=== PATIENT | male | born 1945 | race Caucasian/White ===

== ENCOUNTER → 2019-08-16 | Outpatient (CLI) | payer MEDICARE | END | disposition home or self-care (01) | LOC: LABWHC1 10:35 | PROVIDERS: ATTEND Urology | DX: Z01.812 Encounter for preprocedural laboratory examination (principal); C61 Malignant neoplasm of prostate; R58 Hemorrhage, not elsewhere classified | CPT/HCPCS: 80048; 85025; 85610; 86850; 86900; 86901 ==

== ENCOUNTER 2019-08-23 05:55 | Day surgery (SDC) | payer MEDICARE ==
[2019-08-16 11:24] LABS: Basophils % (A) 1 %; Eosinophils # (A) 0.1 k/uL (0-0.7); Eosinophils % (A) 2 %; HCT 45.7 % (39.0-53.0); HGB 15.3 gm/dL (13.0-17.5); Lymphocytes # (A) 2.3 k/uL (1.0-4.8); Lymphocytes % (A) 29 %; MCH 31.3 pg (25.0-35.0); MCHC 33.5 g/dL (31.0-37.0); MCV 93.6 fL (80.0-100.0); Mean Platelet Volume 7.6; Monocytes # (A) 0.6 k/uL (0-1.0); Monocytes % (A) 7 %; Neutrophils # (A) 4.7 k/uL (1.3-7.7); Neutrophils % (A) 59 %; Platelet Count 195 k/uL (150-450); RBC 4.89 m/uL (4.30-5.90); RDW 13.1 % (11.5-15.5); WBC 7.8 k/uL (3.8-10.6)
[2019-08-16 11:33] LABS: Prothrombin Time 10.1 sec (9.0-12.0)
[2019-08-16 11:35] LABS: African American GFR (CKD) >90 (>60 ml/min/1.73 sqM); Anion Gap 10 mmol/L; Blood Urea Nitrogen 19 mg/dL (9-20); Calcium 9.2 mg/dL (8.4-10.2); Carbon Dioxide 27 mmol/L (22-30); Chloride 103 mmol/L (98-107); Glucose 124 mg/dL (74-99); Non-African American GFR(CKD) 85 (>60 ml/min/1.73 sqM); Potassium 3.6 mmol/L (3.5-5.1); Sodium 140 mmol/L (137-145)
[2019-08-16 15:23] VITALS: BMI 30.1
--- NOTE | 2019-08-22 12:58 | P.HPIHPCON ---
History of Present Illness H&P Date: 08/23/19 Chief Complaint: Prostate Cancer Mr Cagle is 73 yo male with hx of 3+4 [place] 7 prostate cancer, in the right mid and right apex of the gland. We discussed with him the options including surgery and radiation therapy. We discussed the risk and benefits with him of each approach. I discussed with surgery the risk of urinary incontinence or erectile dysfunction, I also discussed with him risk of injury to nearby organs including bowels and rectum and blood vessels. I also discussed the risk from anesthesia with him. Which includes but not limited to blood clots, heart attack, stroke and even . He understood all the risk and agreed to proceed with a robotic-assisted radical prostatectomy Consent for Procedure: I have explained the operation/procedure to the patient, including the risks, benefits, side effects, alternative therapies (including not receiving the proposed treatment or service), the likelihood of the patient achieving his/her goals, and potential recuperation problems for the procedure/sedation/analgesia, as well as any blood products, if indicated. I also explained to the patient the risks, benefits and side effects of the alternatives, as well as the risks related to not receiving the proposed procedure, care, treatment, or services. Past Medical History Past Medical History: Cancer, Hyperlipidemia, Hypertension, Prostate Disorder Additional Past Medical History / Comment(s): prostate cancer, varicose veins, History of Any Multi-Drug Resistant Organisms: None Reported Past Surgical History: Orthopedic Surgery Additional Past Surgical History / Comment(s): chris hand surgery for dupuytrens contracture, left heel ORIF(plate and screws) Past Anesthesia/Blood Transfusion Reactions: Motion Sickness Smoking Status: Never smoker - Past Family History Mother Family Medical History: No Reported History Medications and Allergies Home Medications Medication Instructions Recorded Confirmed Type Atorvastatin [Lipitor] 20 mg PO HS 08/16/19 08/16/19 History Hydrochlorothiazide 25 mg PO QAM 08/16/19 08/16/19 History Losartan Potassium 100 mg PO QAM 08/16/19 08/16/19 History Multivitamins, Thera [Multivitamin 1 tab PO DAILY 08/16/19 08/16/19 History (formulary)] Tamsulosin HCl [Flomax] 0.4 mg PO DAILY 08/16/19 08/16/19 History Allergies Allergy/AdvReac Type Severity Reaction Status Date / Time shrimp/soft shell seafood Allergy throat Uncoded 08/16/19 15:13 swelling Surgical - Exam - General well developed, well nourished, no distress - Respiratory normal expansion, normal respiratory effort - Abdomen Abdomen: soft, tender Assessment and Plan Assessment: 73 yo male with hx of [place] 7 prostate cancer -OR for robotic prostatectomy and pelvic lymph node dissection
[~2019-08-23 05:55] MED LIST: DEXAMETHASONE SOD PHOSPHATE 10 MG/ML 1 ML VIAL IV ONE; GENTAMICIN 120 MG in SODIUM CHLORIDE 0.9% 100 ML IVPB ONE; HYDROmorphone 0.5 MG/0.5 ML SYRINGE IVP PRN; LIDOCAINE 1% 20 ML VIAL (10MG/ML) FOR IV START INTRADERMA PRN; ONDANSETRON 4 MG/2 ML VIAL IVP ONE
[2019-08-23] MEDS ORDERED: SCOPOLAMINE 1.5MG/72HR PATCH TRANSDERM ONE (06:35)
[2019-08-23] MEDS: LACTATED RINGERS 1,000 ML IV SCH ×2 (06:43→17:01)
[2019-08-23] MEDS ORDERED: SUCCINYLCHOLINE CHLORIDE 100 MG/5 ML SYR IV ONE (07:25)
[2019-08-23] MEDS ORDERED: GLYCOPYRROLATE 0.2 MG/ML 2 ML VIAL ONE (07:25)
[2019-08-23] MEDS ORDERED: MIDAZOLAM 2 MG/2 ML VIAL ONE (07:25)
[2019-08-23] MEDS ORDERED: ROCURONIUM BROMIDE 10 MG/ML 10 ML VIAL IV ONE (07:25)
[2019-08-23] MEDS ORDERED: LIDOCAINE 1% INJ 10MG/ML (20 ML MDV) ONE (07:25)
[2019-08-23] MEDS ORDERED: fentaNYL (PF) 50 MCG/ML 2 ML AMP ONE (07:25)
[2019-08-23] MEDS ORDERED: ePHEDrine SULFATE/0.9% NACL/PF 50 MG/5 ML SYRINGE IV ONE (07:25)
[2019-08-23] MEDS ORDERED: NEOSTIGMINE 1 MG/ML 10 ML VIAL ONE (07:25)
[2019-08-23] MEDS ORDERED: ONDANSETRON 4 MG/2 ML VIAL IVP PRN (07:55)
[2019-08-23] MEDS ORDERED: HYDROmorphone 1 MG/ML 1 ML SYRINGE IVP PRN (07:55)
[2019-08-23] MEDS ORDERED: BUPIVACAINE (PF) 0.25% 30 ML VIAL SQ ONE (08:44)
--- NOTE | 2019-08-23 12:39 | P.OP ---
Date of Procedure: 08/23/19 Preoperative Diagnosis: Prostate Cancer Postoperative Diagnosis: same Procedure(s) Performed: Robotic assisted laproscopic radical prostatectomy and bilateral pelvic lymph node dissection Implants: Robotic assisted prostatectomy and lymph node dissection Anesthesia: NANCY Surgeon: Casa Noyola Rotor Assembler #1: Jimi Holcomb Estimated Blood Loss (ml): 150 Pathology: other (prostate, seminal vesicles and bilateral lymph nodes) Condition: stable Disposition: PACU Indications for Procedure: Mr Cagle is 73 yo male with hx of 3+4 [place] 7 prostate cancer, in the right mid and right apex of the gland. We discussed with him the options including surgery and radiation therapy. We discussed the risk and benefits with him of each approach. I discussed with surgery the risk of urinary incontinence and erectile dysfunction, I also discussed with him risk of injury to nearby organs including bowels and rectum and blood vessels. I also discussed the risk from anesthesia with him. Which includes but not limited to blood clots, heart attack, stroke and even . He understood all the risk and agreed to proceed with a robotic-assisted radical prostatectomy Description of Procedure: After preoperative antibiotics were started, the patient was taken to the operating room. Anesthesia was induced and the patient was placed in a low lithitomy position, with adequate padding of the pressure points, shoulders, back, legs and arms. He was then prepped and draped in the standard fashion. A critical pause was performed using two patient identifiers. A 16F andersen catheter was placed to gravity drainage. A pneumo-peritoneum was created with placement of a Veress needle to 20 mm Hg without complication, and a 12 Fr trocar was placed above the umbillicus. Under direct vision a 8mm robotic ports was placed lateral to each rectus slightly below the camera port. The left iliac fossa 8mm port was placed. The right psychological assistant right iliac fossa 12mm port and right paramedian 5mm portwere placed. After the patient was placed in the trendelenberg position, the robot was then docked to the 8mm robotic ports and then each robotic arm and tower was checked in relation to the patient's legs and hands to avoid inadvertent compression. The peritoneal cavity was inspected. patient had adhesion along the left lower quadrant which were taken down. An inverted U-shaped incision began laterally to the left medial umbilical ligament and extended high across the midline to the right umbilical ligament. The limbs of the "U" extended to the level of the vasa on both sides. We next developed the preperitoneal space and the space of Retzius. Cautery was used to dissected the bladder away from the prostate. After the anterior bladder neck was incised and the bladder entered the the posterior bladder neck was exposed and the ureteral orifces identified. The posterior bladder neck was then incised and dissected away from the prostate. The vas and the seminal vesicles were now exposed and dissected to their insertions into the prostate and were not spared. The posterior layer of the Denonvillier's fascia was incised to enter into the plane between prostate and perirectal fat. Each lateral pedicle was controlled with clips for hemostasis. Nerve preservation was performed standard nerve sparing was performed on the right and VEIL was performed on the left. The puboprostatic ligament was incised where it inserted into the apex of the prostate and a plane between urethra and dorsal venous complex developed to expose the anterior urethral surface. The anterior wall of the urethra was transected with the cut setting a few millimeters distal to the apex of the prostate. The dorsal vein was ligated using 3-0 V lock bilateral obturator and external iliac lymph node packets were carefully dissected after careful visualization of the hypogastric artery and obturator nerve. There was careful attention paid to hemostasis with judicious use of cautery. The urethrovesical anastomosis was performed . the posterior denovillers was reapproximated using 3-0 V lock. A 6 and 6 inch 3-0 V-Lock suture was used to anastomose the urethra and bladder, starting at the 6:00 posterior position. Mucosa was secured in every stitch, to ensure a mucosa to mucosa anastomosis. The stitch was regularly cinched and the anastomosis tightened. Care was taken to not violate the ureteral orifices. The Andersen catheter was advanced, the bladder filled, and the anastomosis was tested, as described above. Anastomsis was watertight at 200 mL The periumbilical fascia was closed with 1-0-PDS suture in running fashion. All ports were closed with a subcuticular 4-0 monocryl and Dermabond. Sponge, instrument, and needle counts were correct at the end of the case x2. All specimens including prostate and lymph nodes were sent to pathology for diagnosis and will be available in a week. The patient tolerated the surgery well and without complication. He awoke without difficulty and was taken to the recovery room in stable condition
[2019-08-23] MEDS: HEPARIN SODIUM,PORCINE 5,000 UNIT/ML 1 ML VIAL SQ SCH ×3 (13:40→23:44)
[2019-08-23] MEDS: LOSARTAN 50 MG TAB PO SCH (13:40)
[2019-08-23] MEDS: KETOROLAC 30 MG/ML 1 ML VIAL IVP SCH ×3 (13:44→23:44)
[2019-08-23] MEDS: D5-0.45% NACL WITH KCL 20MEQ/L 1,000 ML IV SCH ×2 (13:47→21:42)
[2019-08-23] MEDS: ARTIFICIAL TEARS OINTMENT 3.5 GM TUBE RIGHT EYE PRN ×2 (18:14→23:45)
[2019-08-23] MEDS ORDERED: ATORVASTATIN 20 MG TAB PO SCH (21:00)
[2019-08-24] VITALS: RESP 16
[2019-08-24] MEDS: KETOROLAC 30 MG/ML 1 ML VIAL IVP SCH ×2 (05:31→12:19)
[2019-08-24] MEDS: D5-0.45% NACL WITH KCL 20MEQ/L 1,000 ML IV SCH (05:31)
[2019-08-24] MEDS: HEPARIN SODIUM,PORCINE 5,000 UNIT/ML 1 ML VIAL SQ SCH (08:16)
[2019-08-24] MEDS: LOSARTAN 50 MG TAB PO SCH (08:19)
[2019-08-24 08:23] VITALS: BP 94/53; PULSE 65; TEMP 98.4
--- NOTE | 2019-08-24 10:29 | P.DS ---
Providers Date of admission: 08/23/2019 Expected date of discharge: 08/24/19 Attending physician: Casa Noyola MD Primary care physician: Shayan Nelson [facility] Course: The patient is a 73-year-old male recently diagnosed with prostate cancer. Treatment options were reviewed and the patient elected to proceed with robotically assisted laparoscopic prostatectomy. The procedure was performed under general anesthesia on 08/23. Patient had minimal pain overnight. He was tolerating regular diet and had no difficulty with chest pain or shortness of breath. Urine draining from his catheter was clear. His abdominal incisions appeared to be intact. The patient's Piña catheter will be left in place for approximately 1 week. He will be seen back in follow-up by at that time and his catheter will most likely be removed then. Procedures: Robotically assisted laparoscopic radical prostatectomy 08/23/2019 Patient Condition at Discharge: Good Plan - Discharge Summary Discharge Rx Participant: No New Discharge Prescriptions: No Action Hydrochlorothiazide 25 mg PO QAM Atorvastatin [Lipitor] 20 mg PO HS Losartan Potassium 100 mg PO QAM Tamsulosin HCl [Flomax] 0.4 mg PO DAILY Multivitamins, Thera [Multivitamin (formulary)] 1 tab PO DAILY Discharge Medication List Atorvastatin [Lipitor] 20 mg PO HS 08/16/19 [History] Hydrochlorothiazide 25 mg PO QAM 08/16/19 [History] Losartan Potassium 100 mg PO QAM 08/16/19 [History] Multivitamins, Thera [Multivitamin (formulary)] 1 tab PO DAILY 08/16/19 [History] Tamsulosin HCl [Flomax] 0.4 mg PO DAILY 08/16/19 [History] Follow up Appointment(s)/Referral(s): Casa Noyola MD [STAFF PHYSICIAN] - 1 Week Activity/Diet/Wound Care/Special Instructions: Provide with leg bag and large catheter bag and instruct in catheter care . Discharge Disposition: HOME SELF-CARE
== END 2019-08-24 13:15 | disposition home or self-care (01) ==
LOC: OR 05:55 → 4SSUR 12:52 → OR 08-24 13:15
PROVIDERS: ATTEND Urology
DX: C61 Malignant neoplasm of prostate (principal); N40.0 Benign prostatic hyperplasia without lower urinary tract symptoms; N42.31 Prostatic intraepithelial neoplasia; I10 Essential (primary) hypertension; E78.5 Hyperlipidemia, unspecified; I83.90 Asymptomatic varicose veins of unspecified lower extremity; Z98.890 Other specified postprocedural states; Z79.899 Other long term (current) drug therapy; Z91.013 Allergy to seafood
CPT/HCPCS: 86900; 86901; 80048; 85025; 85610; 86850; 88307; 88309; 55866; 38571; C1762; J2250; J1644 ×2; J1100; J2710; J0690; J2405; J2001; J3010; J1885 ×2; J1580; J0330

== ENCOUNTER → 2022-05-27 | Outpatient (CLI) | payer MEDICARE ==
--- NOTE | 2022-05-30 10:46 | PE ---
EXAMINATION TYPE: PET CT fusion skull to thigh DATE OF EXAM: 05/27/2022 CLINICAL INDICATION:Male, 76 years old with history of R97.21 RISING PSA FOL TREATMENT FOR MALIGNANT NEOP; TECHNIQUE: Following the intravenous administration of 5.48 mCi of Ga-68 Illuccix (PSMA), whole bod y images are performed from the skull base to the midthigh. Images are reviewed on the computer in t he coronal, axial, and sagittal planes. Reconstructed rotating images are created on independent wor kstation and reviewed on the computer. A non-contrast CT is performed in conjunction with the PET s can. COMPARISON: CT None, PET/CT None, FINDINGS: Mediastinal SUV mean is 0.9. Hepatic parenchyma SUV mean is 3.4. SKULL BASE AND NECK: No suspicious FDG activity. CHEST, MEDIASTINUM, AND HILAR REGION: No suspicious FDG activity. ABDOMEN AND PELVIS: There is asymmetric radiotracer activity within a small tiffany of soft tissue near the right common iliac chain likely representing a small lymph node best appreciated on series 3 marcos ge 193 and fusion image 192 with max SUV 3.0 . It is noted that the right ureter is near this tiffany o f soft tissue. This only measures 4 mm but is asymmetric. OSSEOUS STRUCTURES: No suspicious FDG activity. OTHER CT: Atherosclerosis of the arterial vasculature including the coronary arteries. Small hiatal h ernia. Ventral fat-containing hernia. Scattered clonic diverticulosis. IMPRESSION: Small tiffany of soft tissue near the right ureter along the right common iliac chain. It has mildly as ymmetric increased activity measuring only 4 mm. Attention on short-term follow-up PSMA scan.
== END | disposition home or self-care (01) ==
LOC: RADPETMAIN 15:39
PROVIDERS: ATTEND Urology
DX: R97.21 Rising PSA following treatment for malignant neoplasm of prostate (principal)
CPT/HCPCS: 78815; A9596

== ENCOUNTER → 2022-08-08 | Outpatient (CLI) | payer MEDICARE | END | disposition home or self-care (01) | LOC: LABWHC1 14:07 | PROVIDERS: ATTEND Radiology Radiation Oncology | DX: C61 Malignant neoplasm of prostate (principal) | CPT/HCPCS: 36415; 84153 ==